=== PATIENT | male | born 1960 | race Caucasian/White ===

== ENCOUNTER 2023-10-27 16:10 | Emergency (ER) | payer OTHER ==
[2023-10-27 16:20] VITALS: TEMP 98
--- NOTE | 2023-10-27 16:34 | ED ---
General Adult HPI - General Chief complaint: Neuro Symptoms/Deficit Stated complaint: Stroke symptoms-sent by PCP Time Seen by Provider: 10/27/23 16:19 Source: patient, RN notes reviewed Mode of arrival: ambulatory Limitations: no limitations - History of Present Illness Initial comments: Patient is a 63-year-old male present to the emergency department with concerns for right-sided weakness. Onset of symptoms was around 2 weeks ago. Symptoms have been somewhat waxing and waning, worse since this morning. Patient has decreased sensation entire right side. Patient feels a little bit off balance. Patient is having some speech problems, occasional difficulty word finding and occasional slurred speech. Patient has difficulty texting and using his phone at times. - Related Data Home Medications Medication Instructions Recorded Confirmed Pantoprazole [Protonix] 40 mg PO DAILY PRN 10/27/23 10/27/23 Allergies Allergy/AdvReac Type Severity Reaction Status Date / Time levofloxacin [From Levaquin] Allergy Anaphylaxis Verified 10/27/23 18:25 sulfamethoxazole Allergy Face Verified 10/27/23 18:25 [From Bactrim] swelling, renal faliure trimethoprim [From Bactrim] Allergy Face Verified 10/27/23 18:25 swelling, renal faliure Review of Systems ROS Statement: Those systems with pertinent positive or pertinent negative responses have been documented in the HPI. ROS Other: All systems not noted in ROS Statement are negative. Constitutional: Denies: fever Eyes: Denies: eye pain ENT: Denies: ear pain Respiratory: Denies: cough, dyspnea Cardiovascular: Denies: chest pain Endocrine: Denies: fatigue Gastrointestinal: Denies: abdominal pain Neurological: Reports: as per HPI. Denies: headache Past Medical History Additional Past Medical History / Comment(s): GERD, Melanoma, lyme dx 2022 History of Any Multi-Drug Resistant Organisms: None Reported Past Surgical History: No Surgical Hx Reported Past Psychological History: No Psychological Hx Reported Smoking Status: Never smoker Past Alcohol Use History: Occasional Past Drug Use History: None Reported General Exam Limitations: no limitations General appearance: alert, in no apparent distress Head exam: Present: normocephalic Eye exam: Present: normal appearance, PERRL, EOMI ENT exam: Present: normal oropharynx Neck exam: Present: normal inspection Respiratory exam: Present: normal lung sounds bilaterally Cardiovascular Exam: Present: regular rate, normal rhythm GI/Abdominal exam: Present: soft. Absent: tenderness Extremities exam: Present: normal inspection Neurological exam: Present: alert Expanded Neurological exam: Present: protecting the airway, other (Minimal slurred speech.) Speech: Present: expressive aphasia (Mild slurred speech) Cranial nerves: EOM's Intact: Normal, Facial Palsy with Forehead Movement: Abnormal Right (Minimal right-sided facial weakness easily overcome with smile) Sensory exam: Upper Extremity Light Touch: Abnormal Right, Lower Extremity Light Touch: Abnormal Right Motor strength exam: RUE: 4, LUE: 5, RLE: 4, LLE: 5 Eye Response: (4) open spontaneously Motor Response: (6) obeys commands Verbal Response: (5) oriented Psychiatric exam: Present: normal affect, normal mood Skin exam: Present: normal color Course Vital Signs 10/27/23 10/27/23 10/27/23 16:15 16:30 17:00 Temperature 98.0 F Pulse Rate 59 L 54 L 58 L Respiratory 16 18 18 Rate Blood Pressure 175/114 157/108 161/98 O2 Sat by Pulse 98 99 97 Oximetry 10/27/23 10/27/23 10/27/23 17:30 18:01 19:59 Temperature 98.0 F Pulse Rate 58 L 55 L 53 L Respiratory 18 18 17 Rate Blood Pressure 162/95 143/109 159/94 O2 Sat by Pulse 94 L 99 Oximetry EKG Findings - EKG Results: EKG: interpreted by ERMD (Left axis. Right bundle branch block. ), sinus rhythm, normal ST/T EKG shows: bradycardia Medical Decision Making - Medical Decision Making Patient is not a candidate for tPA secondary to last known well is greater than 4.5 hours Was pt. sent in by a medical professional or institution (, PA, [facility] K[facility]TER, urgent care, hospital, or fpc...) When possible be specific @ -No Did you speak to anyone other than the patient for history (EMS, parent, family, police, friend...)? What history was obtained from this source @ - is present helps confirm onset of symptoms Did you review nursing and triage notes (agree or disagree)? Why? @ -I reviewed and agree with nursing and triage notes Were old charts reviewed (outside hosp., previous admission, EMS record, old EKG, old radiological studies, urgent care reports/EKG's, fpc records)? Report findings @ -No old charts were reviewed Differential Diagnosis (chest pain, altered mental status, abdominal pain women, abdominal pain men, vaginal bleeding, weakness, fever, dyspnea, syncope, headache, dizziness, GI bleed, back pain, seizure, CVA, palpatations, mental health, musculoskeletal)? @ -Differential Weakness: Hypoglycemia, shock, sepsis, hyponatremia, anemia, infection, MT, ETOH, adverse medicine reaction, overdose, stroke, this is not meant to be an all-inclusive list. EKG interpreted by me (3pts min.). @ -As above X-rays interpreted by me (1pt min.). @ -Chest x-ray shows no acute process CT interpreted by me (1pt min.). @ -CT brain shows lesions left parietal and right occipital U/S interpreted by me (1pt. min.). @ -None done What testing was considered but not performed or refused? (CT, X-rays, U/S, labs)? Why? @ -None What meds were considered but not given or refused? Why? @ -None Did you discuss the management of the patient with other professionals (professionals i.e. , PA, ED[employer] K[employer]TER, lab, RT, psych nurse, social media campaign manager, public health technologist, teacher, neighborhood conservation officer, case monitor)? Give summary @Case was discussed with Dr. Blake, neurosurgeon at [facility] will accept transfer for Was smoking cessation discussed for >3mins.? @ -No Was critical care preformed (if so, how long)? @ -No Were there social determinants of health that impacted care today? How? (Homelessness, low income, unemployed, alcoholism, drug addiction, transportation, low edu. Level, literacy, decrease access to med. care, shelter, rehab)? @ -No Was there de-escalation of care discussed even if they declined (Discuss DNR or withdrawal of care, Hospice)? DNR status @ -No What co-morbidities impacted this encounter? (DM, HTN, Smoking, COPD, CAD, Ca ncer, CVA, ARF, Chemo, Hep., AIDS, mental health diagnosis, sleep apnea, morbid obesity)? @ -Patient adds he does have a history of melanoma Was patient admitted / discharged? Hospital course, mention meds given and route, prescriptions, significant lab abnormalities, going to OR and other pertinent info. @ -Patient presents with slow intermittent neurological symptoms on the right side. CT scan concerning for brain lesions. Patient will be transferred for neurosurgical evaluation and further care. Undiagnosed new problem with uncertain prognosis? @ -No Drug Therapy requiring intensive monitoring for toxicity (Heparin, Nitro, Insulin, Cardizem)? @ -No Were any procedures done? @ -No Diagnosis/symptom? @ -Brain lesion Acute, or Chronic, or Acute on Chronic? @ -Acute Uncomplicated (without systemic symptoms) or Complicated (systemic symptoms)? @ -Complicated with neurological symptoms Side effects of treatment? @ -No Exacerbation, Progression, or Severe Exacerbation? @ -No Poses a threat to life or bodily function? How? (Chest pain, USA, MT, pneumonia, PE, COPD, DKA, ARF, appy, cholecystitis, CVA, Diverticulitis, Homicidal, Suicidal, threat to staff... and all critical care pts) @ -No - Lab Data Result diagrams: 10/27/23 16:34 10/27/23 16:34 Lab Results 10/27/23 10/27/23 10/27/23 Range/Units 16:34 16:34 16:34 WBC 4.7 (3.8-10.6) k/uL RBC 5.18 (4.30-5.90) m/uL Hgb 16.5 (13.0-17.5) gm/dL Hct 51.6 (39.0-53.0) % MCV 99.6 (80.0-100.0) fL MCH 31.9 (25.0-35.0) pg MCHC 32.0 (31.0-37.0) g/dL RDW 12.3 (11.5-15.5) % Plt Count 293 (150-450) k/uL MPV 7.5 Neutrophils % 51 % Lymphocytes % 31 % Monocytes % 9 % Eosinophils % 3 % Basophils % 1 % Neutrophils # 2.4 (1.3-7.7) k/uL Lymphocytes # 1.5 (1.0-4.8) k/uL Monocytes # 0.4 (0-1.0) k/uL Eosinophils # 0.2 (0-0.7) k/uL Basophils # 0.1 (0-0.2) k/uL PT 10.6 (10.0-12.5) sec INR 1.0 (<1.2) APTT 26.5 (22.0-30.0) sec Sodium 139 (137-145) mmol/L Potassium 4.5 (3.5-5.1) mmol/L Chloride 108 H (98-107) mmol/L Carbon Dioxide 23 (22-30) mmol/L Anion Gap 8 mmol/L BUN 13 (9-20) mg/dL Creatinine 0.85 (0.66-1.25) mg/dL Est GFR (CKD-EPI)AfAm >90 (>60 ml/min/1.73 sqM) Est GFR (CKD-EPI)NonAf >90 (>60 ml/min/1.73 sqM) Glucose 85 (74-99) mg/dL Calcium 10.0 (8.4-10.2) mg/dL Total Bilirubin 1.1 (0.2-1.3) mg/dL AST 26 (17-59) U/L ALT 19 (4-49) U/L Alkaline Phosphatase 62 (38-126) U/L Creatine Kinase 104 (55-170) U/L Total Protein 7.3 (6.3-8.2) g/dL Albumin 4.7 (3.5-5.0) g/dL Disposition Clinical Impression: Brain lesion Disposition: OTHER INSTITUTION NOT DEFINED Is patient prescribed a controlled substance at d/c from ED?: No Referrals: Nonstaff,Physician [Primary Care Provider] - 1-2 days Time of Disposition: 18:08 - Out of Hospital Transfer - Req. Specs Out of Hospital Transfer - Requested Specifics: Other Emergency Center
[2023-10-27 16:57] LABS: Basophils # (A) 0.1 k/uL (0-0.2); Basophils % (A) 1 %; Eosinophils # (A) 0.2 k/uL (0-0.7); Eosinophils % (A) 3 %; HCT 51.6 % (39.0-53.0); HGB 16.5 gm/dL (13.0-17.5); Lymphocytes # (A) 1.5 k/uL (1.0-4.8); Lymphocytes % (A) 31 %; MCH 31.9 pg (25.0-35.0); MCV 99.6 fL (80.0-100.0); Mean Platelet Volume 7.5; Monocytes # (A) 0.4 k/uL (0-1.0); Monocytes % (A) 9 %; Neutrophils # (A) 2.4 k/uL (1.3-7.7); Neutrophils % (A) 51 %; Platelet Count 293 k/uL (150-450); RBC 5.18 m/uL (4.30-5.90); RDW 12.3 % (11.5-15.5); WBC 4.7 k/uL (3.8-10.6)
[2023-10-27 17:06] LABS: ALT 19 U/L (4-49); AST 26 U/L (17-59); African American GFR (CKD) >90 (>60 ml/min/1.73 sqM); Albumin 4.7 g/dL (3.5-5.0); Alkaline Phosphatase 62 U/L (38-126); Anion Gap 8 mmol/L; Blood Urea Nitrogen 13 mg/dL (9-20); Carbon Dioxide 23 mmol/L (22-30); Chloride 108 mmol/L (98-107); Creatine Kinase 104 U/L (55-170); Glucose 85 mg/dL (74-99); Non-African American GFR(CKD) >90 (>60 ml/min/1.73 sqM); Potassium 4.5 mmol/L (3.5-5.1); Sodium 139 mmol/L (137-145); Total Bilirubin 1.1 mg/dL (0.2-1.3); Total Protein 7.3 g/dL (6.3-8.2)
[2023-10-27 17:26] LABS: Partial Thromboplastin Time 26.5 sec (22.0-30.0); Prothrombin Time 10.6 sec (10.0-12.5)
--- NOTE | 2023-10-27 17:35 | XR ---
EXAMINATION TYPE: XR chest 2V DATE OF EXAM: 10/27/2023 4:52 PM CLINICAL INDICATION:Male, 63 years old with history of altered mental status; H COMPARISON: None TECHNIQUE: XR chest 2V Frontal and lateral views of the chest. FINDINGS: Lungs/Pleura: There is flattening of the diaphragm with increased lucency of the lungs. No evidence o f pneumothorax, pleural effusion or focal consolidation. Pulmonary vascularity: Unremarkable. Heart/mediastinum: Cardiomediastinal silhouette is unremarkable. Musculoskeletal: No acute osseous pathology. IMPRESSION: 1. No acute cardiopulmonary disease process. 2. COPD changes.
--- NOTE | 2023-10-27 17:45 | CT ---
EXAMINATION TYPE: CT brain wo con CT DLP: 1223.4 mGycm, Automated exposure control for dose reduction was used. DATE OF EXAM: 10/27/2023 4:51 PM COMPARISON: None. CLINICAL INDICATION:Male, 63 years old with history of Neuro deficit, acute, stroke suspected, stroke like symptoms TECHNIQUE: Brain: Axial CT images of the brain were obtained with coronal and sagittal reformats created and rev iewed. Contrast used: None. Oral contrast used: None. FINDINGS: Brain: Extra-axial spaces: No abnormal extra-axial fluid collections. Ventricular system: Within normal limits Cerebral parenchyma: Vasogenic edema surrounding cystic lesions with mural wall thickening measuring 39 x 32 mm in the left frontal lobe and right occipital lobe/parietal region cystic lesion measuring 23 x 17 mm. No acute intraparenchymal hemorrhage. The chicas-white junction is well differentiated. Cerebellum: Unremarkable. Mass effect: No evidence of midline shift. Intracranial vasculature: unremarkable Soft tissues: Normal. Calvarium/osseous structures: No depressed skull fracture. Paranasal sinuses and mastoid air cells: Mild scattered paranasal sinus disease. Visualized orbits: Orbital contents are intact. IMPRESSION: 1. 2 cystic lesions concerning for for metastatic disease versus infection. Correlate with history o f malignancy. Further evaluation with MRI with IV contrast recommended. 2. No evidence for acute/subacute CVA.
[2023-10-27 20:04] VITALS: BP 159/94; PULSE 53; RESP 17
== END 2023-10-27 20:35 | disposition other institution (70) ==
LOC: EC 16:10
DX: G93.9 Disorder of brain, unspecified (principal); I45.10 Unspecified right bundle-branch block; R00.1 Bradycardia, unspecified; Z88.1 Allergy status to other antibiotic agents; Z88.2 Allergy status to sulfonamides; Z85.820 Personal history of malignant melanoma of skin
CPT/HCPCS: 36415; 70450; 71046; 80053; 82550; 85025; 85610; 85730; 93005; 99285

== ENCOUNTER → 2023-11-18 | Outpatient (CLI) | payer OTHER ==
--- NOTE | 2023-11-19 15:03 | MR ---
EXAMINATION TYPE: MR brain wo/w con DATE OF EXAM: 11/18/2023 8:42 PM CLINICAL INDICATION:Male, 63 years old with history of C79.31 SECONDARY MALIGNANT NEOPLASM OF BRAIN; PH[facility], Brain cancer, Hx of craniotomy November 01 at [facility] COMPARISON: 10/29/2023 TECHNIQUE: Multi planar, multi sequence imaging was performed through the brain including: T1, T2, In version recovery, susceptibility weighted imaging and gradient echo imaging and Diffusion weighted im aging. The patient was then given intravenous contrast and multi planar, T1 fat-saturation images wer e obtained. IV Contrast: 10 cc Gadavist FINDINGS: Left basal ganglia lesion which is peripherally enhancing measuring 44 x 34 x 36 mm, previously 43 x 35 x 37 mm which is thought to be similar given differences in measuring technique and slice selectio n. Thickening of the periphery is thought to be similar to prior. There remains surrounding vasogenic edema around this lesion. Susceptibility artifact along the periphery likely due to mineralization a nd/or hemosiderin deposition. Areas of restricted diffusion along the periphery noted. Right occipital lobe lesion now with suspected posttreatment change with peripheral thickening and en hancement measuring 21 x 22 mm previously 16 x 25 mm. Enhancement has increased from prior particular ly along the anterior aspect. Small amount of vasogenic edema around this lesion. Susceptibility alissa fact seen along the surgical bed and perforated possibly due to microhemorrhage and/or calcification. Areas of restricted diffusion along the periphery noted. The chicas-white junctions, ventricular system, basal cisterns appear unremarkable. Diffusion-weighted imaging shows no evidence of restricted diffusion to suggest acute/subacute infarct. Intracranial ar terial flow voids are maintained. Midline structures show no abnormality. Scattered foci of high T2 s ignal intensity are seen within the periventricular white matter. The susceptibility weighted images do not reveal any evidence for micro-hemorrhage. The bone marrow signal is within normal limits. There is post surgical changes the right occipital lo be. Paranasal sinuses and mastoid air cells: No significant paranasal sinus disease. Visualized orbits: Orbital contents are intact. IMPRESSION: 1. Postsurgical changes of right occipital lobe lesion with surgical cavity with peripheral enhancem ent which has thickened along the anterior aspect of the lesion. Possibly related to Posttreatment ch anges versus persistent tumor. Continued surveillance recommended. 2. The left basal ganglia lesion appears similar in overall size. 3. No new lesions visualized. 4. Nonspecific white matter changes are unchanged. 5. No evidence for acute/subacute CVA.
== END | disposition home or self-care (01) ==
LOC: RADMRIMAIN 20:15
PROVIDERS: ATTEND Radiology Radiation Oncology
DX: C79.31 Secondary malignant neoplasm of brain (principal); C80.1 Malignant (primary) neoplasm, unspecified; G93.89 Other specified disorders of brain
CPT/HCPCS: 70553; A9585

== ENCOUNTER → 2023-12-12 | Outpatient (CLI) | payer OTHER ==
--- NOTE | 2024-01-09 12:43 | PE ---
Patient: Alec Nicole Ordering Physician: Unknown, Unknown ID: [id number] Phone, Pager: Phone: N/A Pager: N/A : 1960 Age/Gender: 63Y, M Primary Location: N/A Procedure: PETCT SKULL TO THIG H Study Date: 12/12/2023 8:43:09 AM EXAMINATION TYPE: PET CT fusion skull to thigh DATE OF EXAM: 12/25/2023 CLINICAL INDICATION: melanoma. TECHNIQUE: Following the intravenous administration of 10.8 mCi of F-18 FDG, whole body images are performed from the skull base to the midthigh. Images are reviewed on the computer in the coronal, a xial, and sagittal planes. Reconstructed rotating images are created on independent workstation and reviewed on the computer. A non-contrast CT is performed in conjunction with the PET scan. Glucose level 94 mg/dL CT DLP: 1019 mGycm, Automated exposure control for dose reduction was used. COMPARISON: CT None, PET/CT None, MRI: 11/18/2023 FINDINGS: Mediastinal SUV mean is 1.8. Hepatic parenchyma SUV mean is 2.1. SKULL BASE AND NECK: No suspicious radiotracer activity. CHEST, MEDIASTINUM, AND HILAR REGION: Right upper lung Elongated nodule measuring 23 x 9 mm Max SUV 7.2. ABDOMEN AND PELVIS: No suspicious radiotracer activity. MUSCULOSKELETAL STRUCTURES: Uptake within the left Erector spinae muscles max SUV 4.5. OTHER CT: Craniotomy changes to the right posterior skull. Left basal ganglia low density area which is indeterminate on CT but on MRI is felt to correlate with metastatic lesion. Measuring 30 x 26 mm. The heart is mildly enlarged. Mild coronary artery atherosclerosis. Post surgical changes the right colon. Prostatomegaly. Fatty changes in the inguinal canals bilaterally. IMPRESSION: 1. Elongated pulmonary nodule right upper lobe concerning for malignancy until proven otherwise. 2. Indeterminate uptake within the left erector spinae muscles which is poorly visualized on CT.
== END | disposition home or self-care (01) ==
LOC: RADPETMAIN 07:06
PROVIDERS: ATTEND Radiology Radiation Oncology
DX: C43.8 Malignant melanoma of overlapping sites of skin (principal); R91.1 Solitary pulmonary nodule; R93.7 Abnormal findings on diagnostic imaging of other parts of musculoskeletal system
CPT/HCPCS: 78815; A9552

== ENCOUNTER 2023-12-22 04:27 | Emergency (ER) | payer OTHER ==
[2023-12-22] MEDS ORDERED: DEXAMETHASONE SOD PHOSPHATE 10 MG/ML 1 ML VIAL ONE (07:41)
[2023-12-22] MEDS ORDERED: PIPERACILLIN-TAZOBACTAM 3.375 GM VIAL ONE (08:24)
[2023-12-22] MEDS ORDERED: SODIUM CHLORIDE 0.9% 100 ML BAG IV ONE (09:02)
[2023-12-22] MEDS ORDERED: VANCOMYCIN 1,000 MG VIAL ONE (09:02)
[2023-12-22] MEDS ORDERED: VANCOMYCIN 500 MG VIAL ONE (09:02)
[2023-12-22] MEDS ORDERED: ACETAMINOPHEN IV (For NPO) 1,000 MG/100 ML VIAL ONE (09:02)
[2023-12-22] MEDS ORDERED: SODIUM CHLORIDE 0.9% 1,000 ML BAG ONE (09:02)
[2023-12-22] MEDS ORDERED: SODIUM CHLORIDE 0.9% 500 ML BAG ONE (09:02)
--- NOTE | 2024-02-05 11:25 | XR ---
EXAM: XR Chest, 1 View CLINICAL HISTORY: AMS. SOB TECHNIQUE: Frontal view of the chest. COMPARISON: No relevant prior studies available. FINDINGS: Lungs:Bilateral interstitial lung opacities suggestive of moderate pulmonary edema. There is no definite airspace consolidation. Pleural space:No pneumothorax. Heart:Cardiac silhouette is within normal limits. Mediastinum: There is no mediastinal widening or shift.. Bones/joints:No acute osseous abnormality. IMPRESSION: Moderate pulmonary edema. Radiologist: Apollo Bucio M.D. Electronically Signed: 12/22/23 10:22 Study first marked ready to read at 06:42, study last marked ready to read at 06:42, initial results transmitted at 10:22 MTDD
--- NOTE | 2024-02-05 11:27 | CT ---
EXAM: CT Head Without Intravenous Contrast CLINICAL HISTORY: AMS, pt confused & poor historian. Possible h/o brain CAper pt. TECHNIQUE: Axial computed tomography images of the head/brain without intravenous contrast. CTDI is 49.2 mGy and DLP is 1243.4 mGy-cm. This CT exam was performed using one or more of the following dose reduction techniques: automated exposure control, adjustment of the mA and/or kV according to patient size, and/or use of iterative reconstruction technique. COMPARISON: No relevant prior studies available. FINDINGS: Brain: There is a smoothly marginated low-attenuation lesion in the left inferior frontal lobe measuring 43.6 x 35.2 x 33.7 mm with extensive surrounding vasogenic edema. There is 3.9 mm of midline shift to the right. There is low attenuation lesion in the right occipital mild with mild surrounding vasogenic edema. Ventricles:Unremarkable. No ventriculomegaly. Bones/joints:Remote right posterior craniotomy. No acute fracture. Soft tissues:Unremarkable. Sinuses:Chronic ethmoid sinusitis. No acute sinusitis. Mastoid air cells:Unremarkable as visualized. No mastoid effusion. IMPRESSION: There is a cystic lesion in the right frontal lobe with extensive surrounding vasogenic edema concerning for metastatic lesion measuring 43.6 x 35.2 x 33.9 mm. Recommend MRI of the brain with and without contrast for further evaluation. Radiologist: Qian Kelly MD Electronically Signed: 12/22/23 06:56 Study first marked ready to read at 06:21, study last marked ready to read at 06:21, initial results transmitted at 06:56 [facility]
== END 2023-12-22 09:35 ==
LOC: EC 04:27
DX: J18.9 Pneumonia, unspecified organism (principal)
CPT/HCPCS: 70450; 70460; 71045; 96365; 96375; 99291